=== PATIENT | female | born 1970 | race Hispanic/Latino ===

== ENCOUNTER 2016-03-31 22:54 | Emergency (ER) | payer MEDICAID ==
[2016-03-31 23:38] LABS: Urine Drugs of Abuse Note Disclamer
[2016-03-31 23:51] LABS: Bacteria,Urine 1+ /HPF (Negative); Bilirubin,Urine NEG (Negative); Blood,Urine SM (Negative); Ketones,Urine NEG (Negative); Leukocyte Esterase,Urine NEG (Negative); Nitrite,Urine NEG (Negative); Protein,Urine <15 mg/dL mg/dL (Negative); Urobilinogen,Urine < 2.0 mg/dL (<2.0)
[2016-04-01 00:04] LABS: Basophils % (Auto) 0.4 % (0.0-1.8); Eosinophils % (Auto) 0.5 % (0.0-4.3); Hematocrit 43.8 % (30.3-42.9); Hemoglobin 15.2 gm/dl (10.1-14.3); Mean Corpuscular HGB Conc 35 % (30-34); Mean Corpuscular Hemoglobin 32 pg (28-32); Mean Corpuscular Volume 93 fl (79-97); Platelet Count 262 K/mm3 (140-440); Red Blood Count 4.69 M/mm3 (3.65-5.03); Red Cell Distribution Width 12.8 % (13.2-15.2); White Blood Count 17.6 K/mm3 (4.5-11.0)
--- NOTE | 2016-04-01 00:09 | Emergency Department Report ---
ED Psych HPI - General Chief Complaint: Psych Stated Complaint: MH EVAL Time Seen by Provider: 03/31/16 23:21 Source: patient, police Mode of arrival: Ambulatory Limitations: No Limitations - History of Present Illness Initial Comments: 45-year-old female presents to the emergency Department via law enforcement for mental health evaluation. Per report, the patient had an argument with family members. She told the family members that she was going to go to the graveyard where other family members are very. She was then going to lie down so she could . At this time, the patient is denying suicidal thoughts. There are no other complaints. MD Complaint: suicidal ideation -: Gradual, This evening Associated Psychiatric Symptoms: none History of same: No Quality: resolved prior to arrival Improves With: none Worsens With: none Context: recent alcohol abuse, not taking psychiatric Associated Symptoms: denies other symptoms Treatments Prior to Arrival: placed on mental he - Related Data Previous Rx's Medication Instructions Recorded Last Taken Type Naproxen [Naprosyn TAB] 500 mg PO BID #30 tablet 12/21/13 Unknown Rx ALBUTEROL Inhaler [ProAir HFA 2 puff IH QID PRN #1 inhalation 05/14/15 Unknown Rx Inhaler] Fluticasone [Flonase] 1 spray NS QDAY #1 bottle 05/14/15 Unknown Rx Allergies Allergy/AdvReac Type Severity Reaction Status Date / Time Sulfa (Sulfonamide Allergy Hives Verified 05/14/15 13:47 Antibiotics) ED Review of Systems ROS: Stated complaint: MH EVAL Other details as noted in HPI Comment: All other systems reviewed and negative Psychiatric: suicidal thoughts ED Past Medical Hx - Past Medical History Previous Medical History?: Yes Hx Hypertension: Yes Hx Diabetes: Yes (TYPE 2) - Surgical History Past Surgical History?: Yes Additional Surgical History: tubal ligation - Family History Family history: no significant - Social History Smoking Status: Current Every Day Smoker Substance Use Type: Alcohol - Medications Home Medications: Home Medications Medication Instructions Recorded Confirmed Last Taken Type Naproxen [Naprosyn TAB] 500 mg PO BID #30 tablet 12/21/13 04/01/16 Unknown Rx ALBUTEROL Inhaler [ProAir HFA 2 puff IH QID PRN #1 inhalation 05/14/15 04/01/16 Unknown Rx Inhaler] Fluticasone [Flonase] 1 spray NS QDAY #1 bottle 05/14/15 04/01/16 Unknown Rx ED Physical Exam - General Limitations: No Limitations General appearance: alert, in no apparent distress - Head Head exam: Present: atraumatic, normocephalic - Eye Eye exam: Present: normal appearance, PERRL, EOMI - ENT ENT exam: Present: normal exam, normal orophraynx, mucous membranes moist - Neck Neck exam: Present: normal inspection, full ROM. Absent: tenderness - Respiratory Respiratory exam: Present: normal lung sounds bilaterally. Absent: respiratory distress - Cardiovascular Cardiovascular Exam: Present: regular rate, normal rhythm, normal heart sounds - GI/Abdominal GI/Abdominal exam: Present: soft, normal bowel sounds. Absent: distended, tenderness - Extremities Exam Extremities exam: Present: normal inspection, full ROM. Absent: tenderness - Back Exam Back exam: Present: normal inspection, full ROM. Absent: tenderness - Neurological Exam Neurological exam: Present: alert, oriented X3. Absent: motor sensory deficit - Psychiatric Psychiatric exam: Present: normal affect, normal mood. Absent: suicidal ideation - Skin Skin exam: Present: warm, dry, intact ED Course Vital Signs 03/31/16 23:00 Temperature 98.3 F Pulse Rate 108 H Respiratory 18 Rate Blood Pressure 114/78 - Reevaluation(s) Reevaluation #1: 04/01/16 01:51 Lab results reviewed. Patient has been medically cleared. Form 1013 has been signed and placed on the chart. Patient is awaiting mental health evaluation. Reevaluation #2: 04/01/16 02:15 Patient has been evaluated by mental health and is being referred for inpatient treatment. Patient is currently awaiting placement. ED Medical Decision Making - Lab Data Result diagrams: 03/31/16 23:48 03/31/16 23:48 - Differential Diagnosis suicidal thoughts, depression, attention seeking behavior Critical care attestation.: If time is entered above; I have spent that time in minutes in the direct care of this critically ill patient, excluding procedure time. ED Disposition Clinical Impression: Suicidal ideation Disposition: DC/TX PSY HOSP/PSY UNIT Is pt being admited?: No Condition: Stable Time of Disposition: 02:18
[2016-04-01 00:15] LABS: BUN/Creatinine Ratio 16.25; Blood Urea Nitrogen 13 mg/dL (7-17); Calcium 9.5 mg/dL (8.4-10.2); Carbon Dioxide 23 mmol/L (22-30); Chloride 101.2 mmol/L (98-107); Glucose 266 mg/dL (65-100); Potassium 3.5 mmol/L (3.6-5.0); Sodium 142 mmol/L (137-145)
[2016-04-01 00:25] LABS: Anion Gap 21 mmol/L
[2016-04-01] MEDS ORDERED: PROAIR IH PRN (02:14)
[2016-04-01] MEDS ORDERED: PROVENTIL IH PRN (02:28)
[2016-04-01] MEDS: NAPROSYN PO SCH ×2 (03:17→10:00)
[2016-04-01 08:14] VITALS: BP 151/85
[2016-04-01] MEDS ORDERED: NAPROSYN PO SCH (10:00)
[2016-04-01] MEDS ORDERED: FLONASE NS SCH (10:00)
== END 2016-04-01 10:44 ==
LOC: ED 22:54 → EEVIPCON 22:54 → ED 04-01 10:44
DX: R45.851 Suicidal ideations (principal); I10 Essential (primary) hypertension; E11.9 Type 2 diabetes mellitus without complications; F17.200 Nicotine dependence, unspecified, uncomplicated; Z98.51 Tubal ligation status; Z88.2 Allergy status to sulfonamides
CPT/HCPCS: 36415; 80048; 80307; 81001; 81025; 82962; 85025; 99285; G0480; 80320

== ENCOUNTER 2016-12-30 13:38 | Emergency (ER) | payer MEDICAID, OTHER ==
[2016-12-30 14:25] VITALS: BP 112/70
--- NOTE | 2016-12-30 14:38 | Emergency Department Report ---
ED Lower Extremity HPI - General Chief Complaint: Extremity Injury, Lower Stated Complaint: LEFT ANKLE PAIN Time Seen by Provider: 12/30/16 14:37 Source: patient Mode of arrival: Ambulatory Limitations: No Limitations - History of Present Illness MD Complaint: other (FELT POP WHILE WALKING) -: Sudden, This afternoon Injury: Ankle: Left Place: home Severity: moderate Improves With: NSAID Worsens With: movement Associated Symptoms: snap/pop sensation - Related Data Previous Rx's Medication Instructions Recorded Last Taken Type Naproxen [Naprosyn TAB] 500 mg PO BID #30 tablet 12/21/13 Unknown Rx ALBUTEROL Inhaler [ProAir HFA 2 puff IH QID PRN #1 inhalation 05/14/15 Unknown Rx Inhaler] Fluticasone [Flonase] 1 spray NS QDAY #1 bottle 05/14/15 Unknown Rx Naproxen [Naprosyn] 500 mg PO BID PRN #20 tablet 12/30/16 Unknown Rx Allergies Allergy/AdvReac Type Severity Reaction Status Date / Time Sulfa (Sulfonamide Allergy Hives Verified 05/14/15 13:47 Antibiotics) ED Review of Systems ROS: Stated complaint: LEFT ANKLE PAIN Other details as noted in HPI Comment: Unobtainable due to pts medical conditions Constitutional: no symptoms reported, see HPI Eyes: as per HPI ENT: as per HPI Respiratory: see HPI Cardiovascular: as per HPI Endocrine: see HPI Gastrointestinal: as per HPI Genitourinary: as per HPI Musculoskeletal: as per HPI, other (L ANKLE PAIN ; NO TRAUMA) Skin: as per HPI Neurological: as per HPI Psychiatric: as per HPI Hematological/Lymphatic: as per HPI ED Past Medical Hx - Past Medical History Hx Hypertension: Yes Hx Diabetes: Yes (TYPE 2) - Surgical History Additional Surgical History: tubal ligation - Social History Smoking Status: Current Every Day Smoker Substance Use Type: None - Medications Home Medications: Home Medications Medication Instructions Recorded Confirmed Last Taken Type Naproxen [Naprosyn TAB] 500 mg PO BID #30 tablet 12/21/13 04/01/16 Unknown Rx ALBUTEROL Inhaler [ProAir HFA 2 puff IH QID PRN #1 inhalation 05/14/15 04/01/16 Unknown Rx Inhaler] Fluticasone [Flonase] 1 spray NS QDAY #1 bottle 05/14/15 04/01/16 Unknown Rx Naproxen [Naprosyn] 500 mg PO BID PRN #20 tablet 12/30/16 Unknown Rx ED Physical Exam - General Limitations: No Limitations General appearance: alert - Head Head exam: Present: normocephalic - Eye Eye exam: Present: PERRL - ENT ENT exam: Present: mucous membranes moist - Neck Neck exam: Present: normal inspection - Respiratory Respiratory exam: Present: normal lung sounds bilaterally - Cardiovascular Cardiovascular Exam: Present: regular rate - GI/Abdominal GI/Abdominal exam: Present: soft - Extremities Exam Extremities exam: Present: normal capillary refill - Expanded Lower Extremity Exam Left Knee exam: Present: normal inspection Lower Leg exam: Present: normal inspection Ankle exam: Present: swelling (MILD DIFFUSE. NO TRAUMA. NV INTACT. AMBULATORY. ACHILLES INTACT ON EXAM. ). Absent: abrasion, laceration, ecchymosis, deformity , crepidus, dislocation, erythema, anterior draw sign Foot/Toe exam: Present: normal inspection Neuro vascular tendon exam: Present: no vascular compromise. Absent: pulse deficit, abnormal cap refill, motor deficit, sensory deficit, tendon deficit, extremity cold to touch, pallor, foot drop Gait: Positive: observed and normal - Back Exam Back exam: Present: normal inspection. Absent: CVA tenderness (R) - Neurological Exam Neurological exam: Present: alert, oriented X3, CN II-XII intact - Psychiatric Psychiatric exam: Present: normal affect, normal mood - Skin Skin exam: Present: warm, dry ED Course Vital Signs 12/30/16 14:22 Temperature 98 F Pulse Rate 76 Respiratory 22 Rate Blood Pressure 112/70 O2 Sat by Pulse 100 Oximetry - Reevaluation(s) Reevaluation #1: 12/30/16 15:42 TO ER TODAY W L ANKLE PAIN ODD AFFECT NO FALL OR TRAUMA CIG ONLY CO POPPING AND L ANKLE PAIN AMBULATORY MILD DIFFUSE ANKLE SWELLING OA ON XRAY. NO FX NOTED ACHILLES INTACT N/V INTACT W GOOD PULSES AND RAPID CAP REFILL JESSI AND ORTHO FOLLOW UP ED Lower Extremity MDM - Radiology Data Radiology results: image reviewed - Medical Decision Making SEE NOTE Critical care attestation.: If time is entered above; I have spent that time in minutes in the direct care of this critically ill patient, excluding procedure time. ED Disposition Clinical Impression: Ankle sprain, Arthritis Disposition: TO HOME OR SELFCARE Is pt being admited?: No Does the pt Need Aspirin: No Condition: Stable Instructions: Ankle Sprain (ED), Osteoarthritis (ED) Additional Instructions: ICE REST ELEVATE MOTRIN OR TYLENOL FOR PAIN FOLLOW UP ORTHO THIS WEEK JESSI BANDAGE FOR COMFORT Prescriptions: Naproxen [Naprosyn] 500 mg PO BID PRN #20 tablet PRN Reason: Pain Referrals: PRIMARY CAREMD [Primary Care Provider] - 3-5 Days MANNY KOO MD [Staff Physician] - 3-5 Days Time of Disposition: 15:37
[2016-12-30] MEDS ORDERED: MOTRIN PO ONE (15:38)
--- NOTE | 2016-12-30 15:46 | XRay Report ---
FINAL REPORT EXAM: XR ANKLE 3+V LT HISTORY: pain left ankle TECHNIQUE: Left ankle three views PRIORS: None. FINDINGS: There deformity at the neck of the talus. There is linear lucency consistent with fracture along with some hypertrophic bony changes suggestive of a chronic component. There is diffuse soft tissue swelling at the ankle Distal tibia and fibula are intact. No evidence for calcaneal fracture. Minimal calcaneal enthesophyte is noted. No additional acute bony changes. There is a bony defect within mid to distal tibia consistent with surgical hardware which has been removed. IMPRESSION: Fracture through the neck of the talus this appears chronic with possible superimposed acute component. If any prior exams could be obtained for comparison this would be helpful Evidence of prior hardware removal distal tibia Small heel spur Diffuse soft tissue swelling at the ankle
== END 2016-12-30 15:47 | disposition home or self-care (01) ==
LOC: ED 13:38
DX: S93.402A Sprain of unspecified ligament of left ankle, initial encounter (principal); M19.90 Unspecified osteoarthritis, unspecified site; I10 Essential (primary) hypertension; E11.9 Type 2 diabetes mellitus without complications; F17.200 Nicotine dependence, unspecified, uncomplicated; Z88.2 Allergy status to sulfonamides; X58.XXXA Exposure to other specified factors, initial encounter; Y93.01 Activity, walking, marching and hiking; Y92.89 Other specified places as the place of occurrence of the external cause; Y99.9 Unspecified external cause status
CPT/HCPCS: 96372; 99284

== ENCOUNTER → 2017-09-06 23:33 | Emergency (ER) | payer OTHER | END | disposition left against medical advice (07) | LOC: ED 23:33 | DX: M25.572 Pain in left ankle and joints of left foot (principal); Z53.21 Procedure and treatment not carried out due to patient leaving prior to being seen by health care provider ==

== ENCOUNTER 2018-05-13 18:30 | Emergency (ER) | payer OTHER | END 2018-05-13 19:25 | disposition left against medical advice (07) | LOC: ED 18:30 ==